=== PATIENT | male | born 1970 | race Two or more races ===

== ENCOUNTER 2019-09-26 09:46 | Day surgery (SDC) | payer OTHER ==
[~2019-09-26 09:46] MED LIST: LIALDA1.2 GM PO
== END 2019-09-26 17:00 | disposition home or self-care (01) ==
LOC: CIR.AMB 09:46
PROVIDERS: ATTEND Orthopaedic Surgery
DX: M77.11 Lateral epicondylitis, right elbow (principal)

== ENCOUNTER 2022-09-05 13:08 | Emergency (ER) | payer OTHER ==
[~2022-09-05] VITALS: Ht 170.2 cm; Wt 61.2 kg
[2022-09-05] MEDS ORDERED: METRONIDAZOLE500 MG PO (18:39)
[2022-09-05] MEDS ORDERED: LEVSIN/SL0.125 MG SL (18:39)
[2022-09-05] MEDS ORDERED: CIPRO500 MG PO (18:39)
== END 2022-09-05 20:05 | disposition home or self-care (01) ==
LOC: ER 13:08
DX: K62.89 Other specified diseases of anus and rectum (principal)